=== PATIENT | male | born 1980 | race African-American/Black ===

== ENCOUNTER 2016-10-16 09:15 | Emergency (ER) | payer SELFPAY ==
[2016-10-16] MEDS ORDERED: METHYLPREDNISOLONE INJ 125 MG/2 ML SDV IM ONE (10:21)
--- NOTE | 2016-10-16 10:44 | RADIOLOGY REPORT (SQ) ---
EXAM DESCRIPTION: CHEST PA/LAT COMPLETED DATE/TIME: 10/16/2016 10:36 am REASON FOR STUDY: cough COMPARISON: None. EXAM PARAMETERS: NUMBER OF VIEWS: two views TECHNIQUE: Digital Frontal and Lateral radiographic views of the chest acquired. RADIATION DOSE: NA LIMITATIONS: none FINDINGS: LUNGS AND PLEURA: There is patchy perihilar right middle lobe and probable lingular infilt rate. There is basilar atelectasis. No effusions. MEDIASTINUM AND HILAR STRUCTURES: No masses or contour abnormalities. HEART AND VASCULAR STRUCTURES: Heart normal size. No evidence for failure. BONES: No acute findings. HARDWARE: None in the chest. OTHER: No other significant finding. IMPRESSION: Perihilar airspace disease along with right middle lobe and lingular infiltrate. Findin gs are consistent with pneumonia. TECHNICAL DOCUMENTATION: JOB ID: [id number] [employer]- All Rights Reserved
--- NOTE | 2016-10-16 10:49 | ER Document Report ---
HPI - HPI Pain Level: Denies Notes: Pt is a 36yo male with a h/o known sarcoidosis who presents to the ED c/o skin flare, cough, shortness of breath, occ wheeze x1mo. Pt states that they recently moved to the area but ran out of his prednisone 20mg daily. He is scheduled to meet with a provider next week. Pt believes that he also has an illness on top of the flare. He is able to ambulate w/o any difficulties or LOPEZ. The cough is dry and nonproductive. Pt states that the primary area of skin rash is on his face. He is still eating/drinking w/o any difficulties. He denies any other drug allergies. Denies any other significant PMH. Denies any smoking/IV drug use. Pt reports a short episode of a nose bleed yesterday, but denies any other easy bruising or bleeding. Denies any headache, fever, neck pain/stiffness, changes in vision/speech, URI, sore throat, chest pain, palpitations, syncope, dyspnea, abdominal pain, nausea/vomiting/diarrhea, urinary retention, dysuria, hematuria, loss of control of bowel or bladder, numbness/tingling, muscle paralysis/weakness. - ROS Notes: REVIEW OF SYSTEMS: CONSTITUTIONAL : Denies fever, chills, or sweats. Denies recent illness. EENT: Denies eye, ear, throat, or mouth pain or symptoms. Denies nasal or sinus congestion or discharge. Denies throat, tongue, or mouth swelling or difficulty swallowing. CARDIOVASCULAR: Denies chest pain. Denies palpitations or racing or irregular heart beat. Denies ankle edema. RESPIRATORY: see hpi GASTROINTESTINAL: Denies abdominal pain or distention. Denies nausea, vomiting , or diarrhea. Denies blood in vomitus, stools, or per rectum. Denies black, tarry stools. Denies constipation. GENITOURINARY: Denies difficulty urinating, painful urination, burning, frequency, blood in urine, or discharge. MUSCULOSKELETAL: Denies back or neck pain or stiffness. Denies joint pain or swelling. SKIN: see hpi NEUROLOGICAL: Denies confusion or altered mental status. Denies passing out or loss of consciousness. Denies dizziness or lightheadedness. Denies headache. Denies weakness or paralysis or loss of use of either side. Denies problems with gait or speech. Denies sensory loss, numbness, or tingling. Denies seizures. PSYCHIATRIC: Denies anxiety or stress. Denies depression, suicidal ideation, or homicidal ideation. ALL OTHER SYSTEMS REVIEWED AND NEGATIVE. Dictation was performed using [employer] voice recognition software - CARDIOVASCULAR Cardiovascular: DENIES: Chest pain - DERM Skin Color: Normal Past Medical History - Social History Smoking Status: Former Smoker Chew tobacco use (# tins/day): No Frequency of alcohol use: None Drug Abuse: None Family History: Reviewed & Not Pertinent Renal/ Medical History: Denies: Hx Peritoneal Dialysis Surgical Hx: Negative Vertical Provider Document - CONSTITUTIONAL Agree With Documented VS: Yes Notes: PHYSICAL EXAMINATION: GENERAL: Well-appearing, well-nourished and in no acute distress. HEAD: Atraumatic, normocephalic. EYES: Pupils equal round and reactive to light, extraocular movements intact, sclera anicteric, conjunctiva are normal. ENT: EAC clear b/l. TM's intact b/l without erythema, fluid, or perforation. Nares patent and without discharge. oropharynx clear without exudates. No tonsilar hypertrophy or erythema. Moist mucous membranes. No sinus tenderness. NECK: Normal range of motion, supple without lymphadenopathy. No rigidity/ meningismus. LUNGS: Breath sounds clear to auscultation bilaterally and equal. + min wheeze. HEART: Regular rate and rhythm without murmurs, rubs, gallops. Extremities: No cyanosis, clubbing, or edema b/l. Peripheral pulses 2+. Capillary refill less than 3 seconds. NEUROLOGICAL: Cranial nerves grossly intact. Normal speech, normal gait. Normal sensory, motor exams PSYCH: Normal mood, normal affect. SKIN: maculopapular rash to the face, several lesions. - INFECTION CONTROL TRAVEL OUTSIDE OF THE [place] IN LAST 30 DAYS: No - RESPIRATORY O2 Sat by Pulse Oximetry: 97 Course - Re-evaluation Re-evalutation: 10/16/16 10:59 Patient is an afebrile, well-hydrated, 36-year-old male with a history of sarcoidosis who presents to the ED with a right middle lobe pneumonia. Vitals are stable. PE otherwise unremarkable at this time. Solu-Medrol 125 mg given IM. DuoNeb given today. I will send him home with a prescription for Levaquin as well as an inhaler and a prescription for his 20 mg a day prednisone (until he can see his other provider). Low suspicion/risk for any ACS, PE, pneumothorax, pericarditis, dissection, meningitis, sepsis, or other emergent systemic condition at this time. Patient is aware that his condition can change from initial presentation and he needs to monitor symptoms closely and seek medical attention if any acute changes. Recheck with your PCM as scheduled next week. Conservative measures otherwise for symptoms. Return to the ED with any worsening/concerning symptoms otherwise as reviewed in discharge. Patient is in agreement. - Vital Signs Vital signs: Temp Pulse Resp BP Pulse Ox 98.1 F 91 18 132/72 H 97 10/16/16 09:20 10/16/16 09:20 10/16/16 09:20 10/16/16 09:20 10/16/16 09:20 Discharge - Discharge Clinical Impression: Cutaneous sarcoidosis Right middle lobe pneumonia Qualifiers: Pneumonia type: due to unspecified organism Qualified Code(s): J18.1 - Lobar pneumonia, unspecified organism Condition: Stable Disposition: HOME, SELF-CARE Instructions: Pneumonia ([facility]), Follow-Up Care ([facility]) Additional Instructions: Maintain adequate fluid intake Take meds as directed Use inhaler as directed tylenol/ibuprofen as needed over the counter cold medication as needed for symptoms Humidified air may help F/u: with your PCM as scheduled next week for a recheck Return to the ED with any fever, worsening pain, chest pain, palpitations, syncope, worsening GUTIERREZ, neck pain/stiffness, shortness of breath, wheezing, drooling, trouble swallowing/breathing, abdominal pain, n/v/d, rash, or worsening/concerning symptoms otherwise. Prescriptions: Albuterol Sulfate [Proair HFA Inhalation Aerosol 8.5 gm MDI] 1 - 2 puff IH Q4H PRN #1 mdi PRN Reason: Levofloxacin [Levaquin 750 mg Tablet] 750 mg PO DAILY #5 tablet Prednisone [Deltasone 20 mg Tablet] 1 tab PO DAILY #15 tablet Forms: Elevated Blood Pressure, Return to Work Referrals: [facility] [Provider Group] - Follow up as needed [facility] [Provider Group] - Follow up as needed
[2016-10-16] MEDS ORDERED: IPRATROPIUM/ALBUTEROL 0.5-2.5 MG/3 ML AMPUL NEB ONE (10:59)
[2016-10-16 11:29] VITALS: BP 130/70
== END 2016-10-16 11:29 | disposition home or self-care (01) ==
LOC: ER 09:15
DX: J18.1 Lobar pneumonia, unspecified organism (principal); D86.89 Sarcoidosis of other sites; R05 Cough; R06.02 Shortness of breath; R06.2 Wheezing; R04.0 Epistaxis; Z87.891 Personal history of nicotine dependence
CPT/HCPCS: 99285; 71020; J2930; J7620

== ENCOUNTER 2016-11-09 10:50 | Emergency (ER) | payer OTHER ==
--- NOTE | 2016-11-09 11:54 | RADIOLOGY REPORT (SQ) ---
EXAM DESCRIPTION: FOOT RIGHT COMPLETE COMPLETED DATE/TIME: 11/09/2016 11:39 am REASON FOR STUDY: injury right great toe COMPARISON: None. NUMBER OF VIEWS: Three views. TECHNIQUE: AP, lateral and oblique radiographic images acquired of the right foot. LIMITATIONS: None. FINDINGS: MINERALIZATION: Normal. BONES: No acute fracture or dislocation. No worrisome bone lesions. JOINTS: At the 1st metatarsophalangeal joint, there is soft tissue swelling. An old well corticated avulsion fragment or small intra-articular loose body is present along the medial aspect of the 1st M TP joint. Another small well corticated avulsion fragment or loose body is seen along the lateral as pect of the great toe interphalangeal joint SOFT TISSUES: Diffuse forefoot soft tissue swelling. No radiopaque foreign body or soft tissue gas OTHER: No other significant finding. IMPRESSION: No acute fracture. TECHNICAL DOCUMENTATION: JOB ID: [id number] [employer]- All Rights Reserved
--- NOTE | 2016-11-09 12:15 | ER Document Report ---
ED General - General Chief Complaint: Toe Injury Stated Complaint: TOE PAIN Time Seen by Provider: 11/09/16 11:15 Mode of Arrival: Ambulatory Information source: Patient Notes: Patient is a 36-year-old male who presents with right foot pain and swelling at the base of his great toe started a week and half ago. He states he dropped a piece of drywall on it while at work. He states he has tried elevation, Biofreeze, gel packs, heat, Aleve which has been providing some relief. He endorses associated bruising and swelling. He states the pain is better with elevation of his extremity and worse when he is ambulatory. Otherwise doing well. TRAVEL OUTSIDE OF THE [place] IN LAST 30 DAYS: No - Related Data Allergies/Adverse Reactions: No Known Allergies Allergy (Verified 10/16/16 09:22) Past Medical History - General Information source: Patient - Social History Smoking Status: Never Smoker Chew tobacco use (# tins/day): No Frequency of alcohol use: None Drug Abuse: None Family History: Reviewed & Not Pertinent Renal/ Medical History: Denies: Hx Peritoneal Dialysis Review of Systems - Review of Systems Constitutional: See HPI EENT: No symptoms reported Cardiovascular: No symptoms reported Respiratory: No symptoms reported Gastrointestinal: No symptoms reported Genitourinary: No symptoms reported Male Genitourinary: No symptoms reported Musculoskeletal: See HPI Skin: See HPI Hematologic/Lymphatic: No symptoms reported Neurological/Psychological: No symptoms reported Physical Exam - Vital signs Vitals: Temp Pulse Resp BP Pulse Ox 97.9 F 104 H 18 114/60 96 11/09/16 10:59 11/09/16 10:59 11/09/16 10:59 11/09/16 10:59 11/09/16 10:59 - Notes Notes: PHYSICAL EXAM: CONSTITUTIONAL: Alert and oriented, well-appearing and in no acute distress. HENT: Normocephalic, atraumatic. Moist mucous membranes. EYES: Pupils equal round and reactive to light, EOM intact. Sclera anicteric, conjunctiva are normal. No entrapment. NECK: supple without lymphadenopathy. ROM intact. HEART: Regular rate and rhythm without murmurs. LUNGS: CTAB and equal. No wheezes, rales or rhonchi. GI: Normactive bowel sounds. Nontender, non-distended. No organomegaly. no CVAT. EXTREMITIES: Right foot -ecchymosis and swelling to right MTP joint of great toe with associated tenderness to palpation. Range of motion limited in flexion of right great toe secondary to pain. Otherwise remainder of the foot with normal range of motion, no pitting edema. No cyanosis. Cap Refill <3 seconds. Distal pulses intact. NEURO: Cranial nerves grossly intact. Normal sensory/motor exams. PSYCH: Normal mood, normal affect. SKIN: Warm and dry. Normal turgor. No rashes or lesions noted. Course - Re-evaluation Re-evalutation: 11/09/16 11:45 Patient seen and examined. Neurovascular intact. Will x-ray to rule out any fracture dislocation. 11/09/16 12:12 Reviewed x-rays, old avulsion fracture but no acute dislocation or fracture. Discussed results with patient. Will provide a walking shoe for comfort as well as pain medication. Will give work note for the next 2 days. Discussed other supportive care treatments. At this time, will discharge with return precautions and follow-up recommendations. Verbal discharge instructions given at the bedside and opportunity for questions given. Medication warnings reviewed. Patient is in agreement with this plan and has verbalized understanding of return precautions and the need for primary care follow-up in the next 24-72 hours. - Vital Signs Vital signs: Temp Pulse Resp BP Pulse Ox 97.9 F 104 H 18 114/60 96 11/09/16 10:59 11/09/16 10:59 11/09/16 10:59 11/09/16 10:59 11/09/16 10:59 - Diagnostic Test Radiology reviewed: Image reviewed, Reports reviewed Procedures - Immobilization Right Foot Great toe Pre-Proc Neuro Vasc Exam: Normal Immobilizer type: Post-op shoe Performed by: PCT Post-Proc Neuro Vasc Exam: Normal Alignment checked and good: Yes Discharge - Discharge Clinical Impression: Contusion of right foot including toes Qualifiers: Encounter type: initial encounter Qualified Code(s): S90.31XA - Contusion of right foot, initial encounter; S90.121A - Contusion of right lesser toe(s) without damage to nail, initial encounter; S90.121A - Contusion of right lesser toe(s) without damage to nail, initial encounter Condition: Stable Disposition: HOME, SELF-CARE Additional Instructions: Your xray shows an old avulsion fracture but otherwise no new injury. We have diagnosed you with a contusion. we recommend using the post-op shoe for the next 2 days and elevating your foot as much as possible. You have been given narcotic pain medication - do not drink or drive while taking this pain medication. We also recommend that you take ibuprofen as needed for pain and swelling. Contusion Your injury has resulted in a contusion -- a crushing of the deep tissues. No injury to important structures was detected during the physician's exam. Contusions vary in the amount of pain they cause, and in the length of time required for healing. Typically, the area will become bruised, and will remain painful to touch for two or three weeks. However, most patients are back to working and playing within a few days. After the initial period of rest and cold-packs, your symptoms (together with the doctor's recommendations) will determine how rapidly you can get back to full activity. Usually this means "do what feels okay, but don't do things that hurt." If re-examination was recommended, it's important to follow up as instructed. Call the doctor or return any time if pain increases, if swelling becomes severe, if you develop numbness or weakness in an injured extremity, or if any other alarming symptoms occur. Follow up with the provider of your choice in one to two weeks. Prescriptions: Hydrocodone/Acetaminophen [Vicodin 5-300 mg Tablet] 1 tab PO ASDIR PRN #12 tab PRN Reason: Forms: Return to Work
[2016-11-09 12:32] VITALS: BP 125/75
== END 2016-11-09 12:34 | disposition home or self-care (01) ==
LOC: ER 10:50
DX: S90.31XA Contusion of right foot, initial encounter (principal); S90.121A Contusion of right lesser toe(s) without damage to nail, initial encounter; W20.8XXA Other cause of strike by thrown, projected or falling object, initial encounter; Y99.0 Civilian activity done for income or pay
CPT/HCPCS: 99283

== ENCOUNTER 2018-10-11 13:18 | Emergency (ER) | payer SELFPAY ==
[2018-10-11] MEDS ORDERED: AZITHROMYCIN 250 MG TABLET PO ONE (14:58)
[2018-10-11] MEDS ORDERED: CEFTRIAXONE INJ 250 MG VIAL IM ONE (14:58)
[2018-10-11] MEDS ORDERED: LIDOCAINE 1% INJ-PF (10 MG/ML) 30 ML SDV NEB ONE (14:58)
--- NOTE | 2018-10-11 14:58 | ER Document Report ---
ED General - General Chief Complaint: Urinary Problem Stated Complaint: URINARY PROBLEM Time Seen by Provider: 10/11/18 14:47 Primary Care Provider: [facility] [Provider Group] - Follow up in 3-5 days TRAVEL OUTSIDE OF THE [place] IN LAST 30 DAYS: No - HPI Notes: 38 year old male to the ED with C/O dysuria for the past several days and now white pus like drainage from his penis today. He states he is sexually active with his with whom he has been monogamous for the past six years. He denies any fevers, chills, testicular pain, fevers, chills, back pain, h ematuria. - Related Data Allergies/Adverse Reactions: No Known Allergies Allergy (Verified 10/11/18 13:18) Past Medical History - General Information source: Patient, Relative - Social History Smoking Status: Never Smoker Frequency of alcohol use: None Drug Abuse: None Family History: Reviewed & Not Pertinent Renal/ Medical History: Denies: Hx Peritoneal Dialysis Review of Systems - Review of Systems Constitutional: denies: Chills, Fever EENT: No symptoms reported Cardiovascular: denies: Chest pain, Palpitations, Dyspnea, Syncope, Dizziness, Lightheaded Respiratory: denies: Cough, Short of breath Gastrointestinal: denies: Abdominal pain, Diarrhea, Nausea, Vomiting Genitourinary: See HPI, Burning, Dysuria, Discharge Male Genitourinary: See HPI, Penile discharge. denies: Testicular pain -: Yes All other systems reviewed and negative Physical Exam - Vital signs Vitals: Temp Pulse Resp BP Pulse Ox 98.6 F 91 16 119/70 96 10/11/18 13:34 10/11/18 13:34 10/11/18 13:34 10/11/18 13:34 10/11/18 13:34 - General General appearance: Appears well, Alert - HEENT Head: Normocephalic, Atraumatic Eyes: Normal Pupils: PERRL - Respiratory Respiratory status: No respiratory distress Chest status: Nontender Breath sounds: Normal Chest palpation: Normal - Cardiovascular Rhythm: Regular Heart sounds: Normal auscultation Murmur: No - Abdominal Inspection: Normal Distension: No distension Bowel sounds: Normal Tenderness: Nontender Organomegaly: No organomegaly - Genitourinary Inspection: Penile discharge - bishnu copious purulent whitish yellow penile discharge. Exam chaperoned by RN Storm Tenderness: Nontender Cremasteric reflex: Normal Scrotum: Normal - Back Back: Normal, Nontender - Neurological Neuro grossly intact: Yes Cognition: Normal Orientation: AAOx4 Marissa Coma Scale Eye Opening: Spontaneous Marissa Coma Scale Verbal: Oriented Marissa Coma Scale Motor: Obeys Commands Marissa Coma Scale Total: 15 Speech: Normal Motor strength normal: LUE, RUE, LLE, RLE Sensory: Normal - Psychological Associated symptoms: Normal affect, Normal mood - Skin Skin Temperature: Warm Skin Moisture: Dry Skin Color: Normal Course - Re-evaluation Re-evalutation: Impression: Penile discharge, dysuria. Symptoms and exam are very suspicious for STD. discussed this with patient and will go ahead and give empiric treatment for GC and Chlamydia. Also noted UA, suspect it is from GC or Chlamydia, but will cover for urinary infection. Patient agrees with the plan. - Vital Signs Vital signs: Temp Pulse Resp BP Pulse Ox 98.8 F 81 16 128/74 H 98 10/11/18 16:37 10/11/18 16:37 10/11/18 16:37 10/11/18 16:37 10/11/18 16:37 - Laboratory Laboratory results interpreted by me: 10/11/18 10/11/18 13:50 15:10 Urine Blood SMALL H Urine Urobilinogen 4.0 H Ur Leukocyte Esterase LARGE H N.gonorrhoeae DNA (PCR) DETECTED H Discharge - Discharge Clinical Impression: Dysuria, Penile discharge Condition: Stable Disposition: HOME, SELF-CARE Instructions: Urinary Tract Infection ([facility]) Additional Instructions: No sex for 1 week. Complete all antibiotics. Push fluids. Return if any worsening pain, inability urinate, fevers, intractable vomiting. Prescriptions: Cephalexin Monohydrate [Keflex 500 mg Capsule] 500 mg PO BID 7 Days #14 capsule Referrals: [facility] [Provider Group] - Follow up in 3-5 days
[2018-10-11 16:10] LABS: APPEARANCE,URINE CLOUDY; BILIRUBIN,URINE NEGATIVE (NEGATIVE); COLOR,URINE YELLOW; GLUCOSE, URINE NEGATIVE (NEGATIVE); KETONES,URINE NEGATIVE (NEGATIVE); LEUKOCYTE ESTERASE,URINE LARGE (NEGATIVE); NITRITE,URINE NEGATIVE (NEGATIVE); PROTEIN,URINE NEGATIVE (NEGATIVE); URINE SPECIFIC GRAVITY 1.017
[2018-10-11 16:38] VITALS: BP 128/74
[2018-10-11 17:35] LABS: CHLAM PCR NOT DETECTED (NOT DETECT)
== END 2018-10-11 16:54 | disposition home or self-care (01) ==
LOC: ER 13:18
DX: R30.0 Dysuria (principal); R36.9 Urethral discharge, unspecified
CPT/HCPCS: 94640; 99283; 96372; 81001; 87491; 87591; J3490; J0696